=== PATIENT | female | born 1985 | race Caucasian/White ===

== ENCOUNTER 2024-10-28 19:21 | Inpatient (IN) | payer OTHER ==
[~2024-10-28] VITALS: Ht 157.5 cm; Wt 70.4 kg
[2024-10-28 21:53] LABS: BASO # 0.1 10^3/uL (0.0-0.2); BASO % 0.3 % (0.0-1.0); EOS # 0.0 10^3/uL (0.0-0.5); EOS % 0.1 % (0.0-3.0); LYMPH # 0.9 10^3/uL (1.5-5.0); LYMPH % 5.8 % (24.0-44.0); MONO # 0.5 10^3/uL (0.0-0.8); MONO % 3.0 % (2.0-8.0); NEUTROPHILS # 13.5 10^3/uL (1.5-8.5); NEUTROPHILS % 90.5 % (36.0-66.0); PLATELET COUNT, AUTOMATED 300 10^3/uL (150-450)
[2024-10-28 23:04] LABS: ALT/SGPT 46 U/L (7.0-40); AST/SGOT 83 U/L (<34); CALCIUM LEVEL 9.6 MG/DL (8.5-10.1); CARBON DIOXIDE LEVEL 24 MMOL/L (20-31); CHLORIDE LEVEL 106 MMOL/L (98-107); CREATININE FOR GFR 1.19 MG/DL (0.55-1.30); GLOMERULAR FILTRATION RATE 58.9 (>58); POTASSIUM SERUM 4.2 MMOL/L (3.5-5.1); SODIUM LEVEL 144 MMOL/L (136-145)
[2024-10-28] MEDS: KETOROLAC 30 MG/ML 1 ML VIAL IV ONE (23:08)
[2024-10-28] MEDS: ONDANSETRON 4MG 2ML VIAL IV ONE (23:08)
[2024-10-28 23:29] LABS: HCG, SERUM QUALITATIVE NEGATIVE (NEGATIVE)
[2024-10-28] MEDS ORDERED: ISOVUE-370 76% 100 ML VIAL As Ordered ONE (23:49)
[2024-10-29] MEDS: NS (Normal Saline) 0.9% 1,000 ML IV ONE ×2 (01:25→02:56)
[2024-10-29 02:54] LABS: KETONE, URINE AUTO RFX 1+ mg/dL (NEGATIVE); LEUKOCYTE ESTERASE UR AUTO RFX 3+ (NEGATIVE); MUCUS, URINE RFX SMALL (NEGATIVE); NITRITE, URINE AUTO RFX POSITIVE (NEGATIVE); RBC, URINE AUTO RFX 12 /HPF (0-3); SQUAM EPITHELIAL CELL UR AURFX 2 /HPF (0-6); WBC, URINE AUTO RFX 28 /HPF (0-3)
[2024-10-29] MEDS: PIPERACILLIN/TAZOBACTAM SOD 3.375 GM in DEXTROSE 5% (D5W) ADV/MINI-BAG 50 ML IV ONE (02:57)
[2024-10-29 03:51] LABS: ALT/SGPT 36.0 U/L (7.0-40); AST/SGOT 52.0 U/L (<34)
[2024-10-29] MEDS ORDERED: MORPHINE 4 MG/ML 1 ML VIAL IV PRN (04:40)
[2024-10-29] MEDS: LR 1,000 ML IV SCH ×2 (05:08→08:46)
[2024-10-29] MEDS ORDERED: ONDANSETRON 4MG 2ML VIAL IV PRN (05:20)
[2024-10-29 05:55] LABS: PLATELET COUNT, AUTOMATED 227 10^3/uL (150-450)
[2024-10-29 06:17] LABS: ALT/SGPT 33.0 U/L (7.0-40); AST/SGOT 47.0 U/L (<34); CALCIUM LEVEL 7.2 MG/DL (8.5-10.1); CARBON DIOXIDE LEVEL 22.0 MMOL/L (20-31); CHLORIDE LEVEL 111.0 MMOL/L (98-107); CREATININE FOR GFR 1.07 MG/DL (0.55-1.30); GLOMERULAR FILTRATION RATE 66.9 (>58); POTASSIUM SERUM 3.8 MMOL/L (3.5-5.1); SODIUM LEVEL 144.0 MMOL/L (136-145)
[2024-10-29 07:12] LABS: CHOLESTEROL LEVEL 129.0 MG/DL (<200); CHOLESTEROL RISK RATIO 2.8 (<5); LDL CHOLESTEROL 68.6 MG/DL (<100); NON-HDL-C 83.0 MG/DL; TRIGLYCERIDES LEVEL 72.0 MG/DL (<150)
[2024-10-29] MEDS ORDERED: HOME MED LIST COMPLETE! XX SCH (07:50)
[2024-10-29 08:46] VITALS: BP 95/64; TEMP 97.9; O2SAT 97
[2024-10-29] MEDS: MORPHINE 2 MG/ML 1 ML VIAL IV PRN (09:42)
[2024-10-29] MEDS: CALCIUM GLUCONATE 1,000 MG in DEXTROSE 5% (D5W) MINI-BAG PLU 100 ML IV ONE ×2 (10:09→14:11)
[2024-10-29] MEDS: PIPERACILLIN/TAZOBACTAM SOD 4.5 GM in DEXTROSE 5% (D5W) ADV/MINI-BAG 50 ML IV SCH (12:13)
[2024-10-29 12:25] VITALS: BP 102/59; TEMP 98.1; O2SAT 95
[2024-10-29] MEDS: NS 0.45% 1,000 ML IV ONE (14:11)
[2024-10-29 16:13] VITALS: BP 108/58; TEMP 98; O2SAT 96
[2024-10-29] MEDS: KCL 40MEQ in NS 1000ML 1,000 ML IV SCH (16:32)
[2024-10-29] MEDS ORDERED: LR 1,000 ML IV SCH (16:40)
[2024-10-29 17:14] VITALS: BP 108/63
[2024-10-29] MEDS: MIDODRINE 5 MG TAB PO ONE (17:14)
[2024-10-29 18:10] LABS: MAGNESIUM LEVEL 1.8 MG/DL (1.8-2.4); PHOSPHORUS LEVEL 2.5 MG/DL (2.5-4.9)
[2024-10-29 18:15] LABS: ALT/SGPT 34 U/L (7.0-40); AST/SGOT 39 U/L (<34); CALCIUM LEVEL 8.1 MG/DL (8.5-10.1); CARBON DIOXIDE LEVEL 22 MMOL/L (20-31); CHLORIDE LEVEL 110 MMOL/L (98-107); CK-MB VALUE MASS < 1.0 NG/ML (<3.6); CPK CREATINE PHOSPHOKINASE 104 U/L (34-145); CREATININE FOR GFR 1.06 MG/DL (0.55-1.30); GLOMERULAR FILTRATION RATE 67.7 (>58); POTASSIUM SERUM 3.5 MMOL/L (3.5-5.1); SODIUM LEVEL 142 MMOL/L (136-145)
[2024-10-29 20:44] VITALS: BP 99/54; TEMP 97.7; O2SAT 95
[2024-10-29] MEDS: KETOROLAC 30 MG/ML 1 ML VIAL IV PRN (21:05)
[2024-10-29] MEDS: MAALOX 30 ML SUSP *UDC PO PRN (21:05)
[2024-10-29 23:59] VITALS: BP 114/64; TEMP 97.9; O2SAT 95
[2024-10-30 04:16] VITALS: BP 112/64; TEMP 98.1; O2SAT 91
[2024-10-30 06:05] LABS: PLATELET COUNT, AUTOMATED 210 10^3/uL (150-450)
[2024-10-30 07:14] LABS: ALT/SGPT 46.0 U/L (7.0-40); AST/SGOT 61.0 U/L (<34); CALCIUM LEVEL 8.2 MG/DL (8.5-10.1); CARBON DIOXIDE LEVEL 21.0 MMOL/L (20-31); CHLORIDE LEVEL 110.0 MMOL/L (98-107); CREATININE FOR GFR 1.16 MG/DL (0.55-1.30); GLOMERULAR FILTRATION RATE 60.7 (>58); POTASSIUM SERUM 3.8 MMOL/L (3.5-5.1); SODIUM LEVEL 142.0 MMOL/L (136-145)
[2024-10-30 08:00] VITALS: BP 130/67; TEMP 98.6; O2SAT 94
[2024-10-30] MEDS ORDERED: AMOX875T2 PO (10:41)
[2024-10-30] MEDS ORDERED: OXYC1TAB23 PO (10:41)
[2024-10-30] MEDS ORDERED: IBUP-1114 PO (10:43)
[2024-10-30] MEDS ORDERED: PRIL20TA2 PO (10:43)
[2024-10-30 12:00] VITALS: BP 127/67; TEMP 97.9; O2SAT 96
== END 2024-10-30 12:39 | disposition home or self-care (01) | DRG 444 ==
LOC: M ED 19:21 → M ED INP 10-29 05:18 → M MSPAV 10-29 08:36
PROVIDERS: ADMIT Student in an Organized Health Care Education/Training Program; ATTEND General Practice
PROC: B246ZZZ Ultrasonography of Right and Left Heart (ICD-10-PCS; principal; 2024-10-30)
DX: K81.0 Acute cholecystitis (principal); K85.10 Biliary acute pancreatitis without necrosis or infection; N17.9 Acute kidney failure, unspecified; R74.01 Elevation of levels of liver transaminase levels; D63.8 Anemia in other chronic diseases classified elsewhere; N30.90 Cystitis, unspecified without hematuria